=== PATIENT | male | born 1970 | race Caucasian/White ===

== ENCOUNTER 2016-11-02 19:09 | Emergency (ER) | payer MEDICAID ==
--- NOTE | 2016-11-02 19:42 | DX ---
Portable Chest, Single View 19:31 Hours Indication: Cough. Comparison: None Findings: Patchy left basilar airspace consolidation partially obscures left hemidiaphragm and left h eart border. Lungs are otherwise well aerated and clear. Heart size is normal. No effusion. Impression: Left basilar consolidation. Query pneumonia. Recommend follow-up chest radiograph in 4-6 weeks to confirm no underlying pulmonary nodule or mass.
--- NOTE | 2016-11-02 20:18 | EDPHY ---
H & P Stated Complaint: cough, body aches Time Seen by Provider: 11/02/16 19:09 HPI/ROS: CHIEF COMPLAINT: cough, body aches HISTORY OF PRESENT ILLNESS: 46-year-old male presents to the emergency department complaining of a 7 day history of cough, body aches, subjective fevers and chills. Patient reports his cough has worsened in the last couple days, it is productive with yellow sputum. He reports nasal congestion. He does smoke cigarettes daily. Patient reports multiple sick contacts as [facility] is [facility] He denies sore throat, no chest pain. Patient reports he has been taking Tylenol and ibuprofen intermittently which is helpful for his symptoms. REVIEW OF SYSTEMS: A comprehensive 10 point review of systems is otherwise negative aside from elements mentioned in the history of present illness. Source: Patient Exam Limitations: No limitations - Personal History Current Tetanus/Diphtheria Vaccine: No Current Tetanus Diphtheria and Acellular Pertussis (TDAP): No - Medical/Surgical History Hx Asthma: No Hx Chronic Respiratory Disease: No Hx Diabetes: No Hx Cardiac Disease: No Hx Renal Disease: No Hx Cirrhosis: No Hx Alcoholism: No Hx HIV/AIDS: No Hx Splenectomy or Spleen Trauma: No Other PMH: pmh- hypoglyecimic, ptsd, depression, suicide attempt. psh- thumb - Family History Significant Family History: No pertinent family hx - Social History Smoking Status: Light smoker - Physical Exam Exam: General: Alert, nontoxic. ENT: Tympanic membranes clear, external auditory canal, external ear and surrounding soft tissue including over the mastoid unremarkable. Nasopharynx is injected, there is rhinorrhea. Oropharynx with erythema, no edema. There is no exudate. No tonsillar hypertrophy. No asymmetry. The uvula is midline. No elevation of tongue. There is no hoarseness. No drooling, patient has good control of their oral secretions. No trismus. No stridor. Cardiac: Regular rate and rhythm. Respiratory: Lungs clear to auscultation bilaterally. Neurological: no meningismus. Skin: No rashes. Constitutional: Initial Vital Signs Temperature (C) 37 C 11/02/16 19:19 Heart Rate 77 11/02/16 19:19 Respiratory Rate 14 11/02/16 19:19 Blood Pressure 107/65 11/02/16 19:19 O2 Sat (%) 95 11/02/16 19:19 O2 Delivery Mode Room Air Allergies/Adverse Reactions: milk [Milk] Allergy (Unknown, Verified 11/02/16 19:17) Home Medications: Medication Instructions Recorded Herbals/Supplements -Info Only 1 ea PO DAILY 03/18/15 Azithromycin [Zithromax] 250 mg PO DAILY 4 Days 11/02/16 Medical Decision Making - Diagnostics Imaging: Chest x-ray independently reviewed by me- Impression: Left basilar consolidation. Query pneumonia. Recommend follow-up chest radiograph in 4 -6 weeks to confirm no underlying pulmonary nodule or mass. Dictated By: Prakash Sanford MD ED Course/Re-evaluation: 46-year-old nontoxic-appearing male presents with a 7 day history of cough, subjective fevers and chills and body aches. Chest x-ray shows a left lower lobe pneumonia. He is a smoker. He is given 500 mg of p. o. Zithromax in the emergency department, he is discharged with a prescription for 4 more days of 250 mg. He is sent home with an albuterol inhaler to use 2 puffs every 4-6 hours as needed for cough. I have recommended alternating Tylenol with ibuprofen and smoking cessation. He agrees to return for worsening symptoms and agrees to follow up at [facility] for repeat chest x-ray in 4-6 weeks to assure this has resolved. Patient is comfortable this plan, room air oxygen saturations are 97% he is a febrile, heart rate is 70 and he is normotensive. Differential Diagnosis: Diagnosis considered but not limited to community-acquired pneumonia, viral pneumonia, influenza, viral syndrome, URI - Data Points Laboratory Results: 11/02/16 19:15 Influenza Typ A,B (DFA) NEGATIVE FOR FLU (NEGATIVE) Departure - Departure Disposition: Home, Routine, Self-Care Clinical Impression: Community acquired pneumonia Condition: Good Instructions: Community Acquired Pneumonia (ED) Additional Instructions: Take your antibiotics as prescribed, use the albuterol inhaler, 2 puffs every 4- 6 hours as needed for cough, continue taking Tylenol alternating with ibuprofen every 4 hours for fevers and body aches. Follow up at [facility] for a repeat chest x-ray in 4-6 weeks to assure this has resolved. Return to the emergency department for worsening symptoms. Referrals: [facility] [Outside] - As per Instructions Prescriptions: Azithromycin [Zithromax] 250 mg PO DAILY 4 Days
[2016-11-02] MEDS ORDERED: AZITHROMYCIN 250 MG TAB PO ONE (20:25)
[2016-11-02] MEDS ORDERED: ALBUTEROL INH PREPACK MDI TAKEHOME ONE (20:25)
[2016-11-02 20:59] VITALS: BP 100/63; PULSE 73; RESP 16; TEMP 98.1; O2SAT 97
== END 2016-11-02 20:59 | disposition home or self-care (01) ==
LOC: EDUNIT#
DX: J18.9 Pneumonia, unspecified organism (principal); F17.200 Nicotine dependence, unspecified, uncomplicated

== ENCOUNTER 2016-11-07 09:10 | Inpatient (IN) | payer MEDICAID ==
--- NOTE | 2016-11-07 09:23 | EDPHY ---
H & P Time Seen by Provider: 11/07/16 09:20 HPI/ROS: CHIEF COMPLAINT: Cough, shortness of breath, vomiting HISTORY OF PRESENT ILLNESS: 46-year-old homeless male presents to the emergency department by ambulance with persisting cough, shortness of breath and vomiting. The patient was diagnosed with left lower lobe pneumonia on November 02, 2016 and was prescribed Zithromax. He took the Zithromax as prescribed, however he continues to have coughing and now post-tussive vomiting. Describes sharp pain in the left side of his chest. He has pain with deep breathing. He has cramping abdominal pain. He denies back pain. Denies urinary symptoms. Unknown fevers or chills. REVIEW OF SYSTEMS: Constitutional: Unknown fevers, chills Eyes: No double or blurry vision. ENT: No sore throat. Respiratory: Cough, shortness of breath Cardiac: Left-sided chest pain Gastrointestinal: Post-tussive vomiting. No abdominal pain or diarrhea Genitourinary: No dysuria. Musculoskeletal: No neck or back pain. Skin: No rashes. Neurological: No headache. Past Medical/Surgical History: Diagnosed with left lower lobe pneumonia November 02, 2016 Social History: Homeless Smoking Status: Light smoker Physical Exam: General Appearance: Alert, no distress. Temperature 37.8, 95% on room air. Blood pressure 124/82 Eyes: Pupils equal and round. Extraocular motions are all intact. ENT: Mouth: Mucous membranes moist. Respiratory: Actively coughing. Decreased breath sounds in the bases bilaterally. No rhonchi or wheezing noted. Unable to reproduce pain with palpation to the anterior aspect of his chest. Cardiovascular: Regular rate and rhythm. Gastrointestinal: Abdomen is soft and nontender, no masses, no rebound or guarding, bowel sounds normal. Neurological: Alert and oriented x 3, cranial nerves II through XII grossly intact Skin: Warm and dry, no rashes. Musculoskeletal: Nontender to palpate along the cervical, thoracic or lumbar spine. Neck is supple. Extremities: Full range of motion and no peripheral edema. Psychiatric: Patient is oriented X 3, there is no agitation. Constitutional: Initial Vital Signs Temperature (C) 37.3 C 11/07/16 09:10 Heart Rate 96 11/07/16 09:10 Respiratory Rate 20 11/07/16 09:10 Blood Pressure 149/87 H 11/07/16 09:10 O2 Sat (%) 95 11/07/16 09:10 O2 Delivery Mode Room Air Allergies/Adverse Reactions: milk [Milk] Allergy (Unknown, Verified 11/02/16 19:17) Home Medications: Medication Instructions Recorded Herbals/Supplements -Info Only 1 ea PO DAILY 03/18/15 Albuterol [Proventil Inhaler HFA 2 puffs IH Q4 PRN 11/07/16 (*)] Medical Decision Making - Diagnostics EKG Interpretation: EKG reveals normal sinus rhythm with no acute ST T wave abnormalities. This is reviewed by Dr. Marizol Silva. See interpretation in trace master. Imaging: Chest x-ray reveals evidence of worsening infiltrate in the left lower lobe compared with previous study from November 02, 2016. CT pulmonary angiogram reveals no evidence of pulmonary embolism however dense left lower lobe pneumonia and likely right middle lobe pneumonia noted. This was reported by Dr. Hosea Londono. ED Course/Re-evaluation: 46-year-old homeless male presents to the emergency department with persisting cough. Chest x-ray reveals worsening infiltrate left lower lobe. Because he is having pain in his chest with specifically pleuritic chest pain, D-dimer was ordered which was elevated 1.63. CT pulmonary angiogram reveals no evidence of pulmonary embolism, however left lower lobe dense infiltrate with likely right middle lobe pneumonia noted as well. White blood cell count elevated over 13,000. Chemistries were normal. Patient was started on Levaquin 750 mg IV. Blood cultures have been collected. The patient will be admitted to the [facility] given his worsening cough and shortness of breath. I did not repeat influenza swab as his influenza was negative when he was here 1 week ago. Differential Diagnosis: Including but not limited to pneumonia, bronchitis, pulmonary embolism, viral upper respiratory infection, influenza - Data Points Laboratory Results: Laboratory Results 11/07/16 09:24 11/07/16 09:24 11/07/16 09:24 WBC 13.29 H 10^3/uL (3.80-9.50) RBC 4.60 10^6/uL (4.40-6.38) Hgb 14.6 g/dL (13.7-17.5) Hct 40.9 % (40.0-51.0) MCV 88.9 fL (81.5-99.8) MCH 31.7 pg (27.9-34.1) MCHC 35.7 g/dL (32.4-36.7) RDW 12.8 % (11.5-15.2) Plt Count 257 10^3/uL (150-400) MPV 9.8 fL (8.7-11.7) Neut % (Auto) 81.4 H % (39.3-74.2) Lymph % (Auto) 8.0 L % (15.0-45.0) [place] % (Auto) 8.9 % (4.5-13.0) Eos % (Auto) 0.5 L % (0.6-7.6) Baso % (Auto) 0.5 % (0.3-1.7) Nucleat RBC Rel Count 0.0 % (0.0-0.2) Absolute Neuts (auto) 10.83 H 10^3/uL (1.70-6.50) Absolute Lymphs (auto) 1.06 10^3/uL (1.00-3.00) Absolute Monos (auto) 1.18 H 10^3/uL (0.30-0.80) Absolute Eos (auto) 0.07 10^3/uL (0.03-0.40) Absolute Basos (auto) 0.06 10^3/uL (0.02-0.10) Absolute Nucleated RBC 0.00 10^3/uL (0-0.01) Immature Gran % 0.7 % (0.0-1.1) Immature Gran # 0.09 10^3/uL (0.00-0.10) D-Dimer 1.63 H ug/mLFEU (0.00-0.50) Sodium 141 mEq/L (134-144) Potassium 4.3 mEq/L (3.5-5.2) Chloride 104 mEq/L (97-110) Carbon Dioxide 22 mEq/l (22-31) Anion Gap 15 mEq/L (8-16) BUN 12 mg/dL (7-23) Creatinine 0.7 mg/dL (0.7-1.3) Estimated GFR > 60 Glucose 98 mg/dL (70-100) Calcium 9.0 mg/dL (8.5-10.4) Departure - Departure Disposition: [facility] Inpatient Acute Clinical Impression: Pneumonia Qualifiers: Pneumonia type: due to unspecified organism Laterality: bilateral Lung location : unspecified part of lung Qualifier Code: (J18.9) Pneumonia, unspecified organism Condition: Good
--- NOTE | 2016-11-07 09:28 | CPEKG ---
Heart Rate: 89 RR Interval: 674 P-R Interval: 156 QRSD Interval: 82 QT Interval: 340 QTC Interval: 414 P [place]: 73 QRS [place]: -57 T Wave [place]: 67 EKG Severity - ABNORMAL ECG - EKG Impression: SINUS RHYTHM EKG Impression: LEFT ANTERIOR FASCICULAR BLOCK Electronically Signed By: Willis Edgar 08-Nov-2016 10:53:24
[2016-11-07 09:34] LABS: % IMMATURE GRANULYOCYTES 0.7 % (0.0-1.1); ABSOLUTE IMMATURE GRANULOCYTES 0.09 10^3/uL (0.00-0.10); ADD DIFF? NO; ADD MORPH? NO; ADD SCAN? NO; ATYPICAL LYMPHOCYTE FLAG 0 (0-99); FRAGMENT RBC FLAG 0 (0-99); HEMATOCRIT 40.9 % (40.0-51.0); HEMOGLOBIN 14.6 g/dL (13.7-17.5); LEFT SHIFT FLG 0 (0-99); LIPEMIA HEMOLYSIS FLAG 90 (0-99); MEAN CELL HEMOGLOBIN 31.7 pg (27.9-34.1); MEAN CELL HEMOGLOBIN CONCENTR. 35.7 g/dL (32.4-36.7); MEAN CELL VOLUME 88.9 fL (81.5-99.8); MEAN PLATELET VOLUME 9.8 fL (8.7-11.7); PLATELET CLUMPS FLAG 0 (0-99); PLATELET COUNT 257 10^3/uL (150-400); RED CELL DISTRIBUTION WIDTH 12.8 % (11.5-15.2)
[2016-11-07 09:45] LABS: ANION GAP 15 mEq/L (8-16); CARBON DIOXIDE 22 mEq/l (22-31); CHLORIDE 104 mEq/L (97-110); CREATININE 0.7 mg/dL (0.7-1.3); GLOMERULAR FILTRATION RATE > 60; GLUCOSE 98 mg/dL (70-100); POTASSIUM 4.3 mEq/L (3.5-5.2); SODIUM 141 mEq/L (134-144)
[2016-11-07] MEDS ORDERED: IOPAMIDOL (ISOVUE 370) 100 ML BTL IV ONE (10:06)
--- NOTE | 2016-11-07 10:57 | DX ---
Chest, AP Upright and Lateral Views November 07, 2016 at 9:21 a.m. Clinical History: 46-year-old male with dyspnea and coughing, seen for pneumonia last week and withou t improvement. Comparison Study: Chest, dated November 02, 2016. Findings: Telemetry monitoring lead lines are noted. The cardiac and mediastinal silhouettes are norm al in size. There is mild central perihilar bronchial wall thickening. There is a persistent and slig htly increased infiltrate at the left lung base. The right hemithorax is relatively clear. There is n o peripheral interstitial edema or pneumothorax. There is a mild pectus carinatum configuration. The thoracic vertebral body heights are maintained. The trachea is midline. Impression: Perihilar bronchial wall thickening with a slight interval increase in the left basilar i nfiltrate, compared November 02, 2016.
--- NOTE | 2016-11-07 11:16 | CT ---
Contrast Enhanced CT Scan of the Chest CT (CT Angiography) Clinical History: 46-year-old male with left-sided chest pain, a cough, shortness of breath, and naus ea and vomiting, who has been treated for pneumonia for the last 5 days. He has a tobacco use history . His D-dimer is elevated at 1.63. Rule out PE. Technique: Following the uncomplicated intravenous administration of 90 mL of Isovue-370, a multidete ctor helical CT scan was obtained from the base of the neck inferiorly to the upper abdomen during pe ak arterial phase, with images reformatted in soft tissue, lung, liver, and bone windows, and are ref ormatted at 1.50 mm and 4/3 mm increments. Multiplanar reconstructions were reviewed on the workstati on. The DFOV is 35.4 cm. Dose reduction techniques were utilized. Comparison Studies: Chest radiography from this morning, and dated November 02, 2016. Findings: CT Angiography: The main pulmonary artery, the main right and left pulmonary arteries, and the first and second order pulmonary segments are contrast-opacified, with no filling defect to suggest acute o r chronic thromboemboli. There is no interventricular septum deviation, nor is there any reflux of co ntrast into the intrahepatic IVC. The ascending and descending thoracic aorta, as well as the visuali zed upper abdominal aorta are normal in caliber, with no aneurysm or dissection. There is a normal an atomic arrangement of the great vessels off the aortic arch. There is no coronary artery atherosclero tic calcification. The pericardium is normal. Contrast-Enhanced CT Scan of the Chest: There is a dense infiltrate involving posterior left lower lo be, consistent with a bronchopneumonia. There is also some mild subsegmental atelectasis or infiltrat e in the posterior medial and inferolateral right middle lobe and in the anteromedial right lower lob e. There is no pleural effusion. A portion of the right costophrenic angle has been excluded. There i s no pleural effusion, pneumothorax, or pneumomediastinum. There is no pathologically-enlarged adenop athy. The visualized portions of the thyroid gland and the upper abdomen are normal. The osseous stru ctures are age-appropriate. Impression: 1. There is no CT evidence of pulmonary artery thromboemboli. 2. Dense bronchopneumonia involving the left lower lobe with some minimal subsegmental atelectasis ve rsus early infiltrates in the posterior medial and inferolateral right middle lobe, and in the leslie medial right lower lobe. Results were conveyed to Ki Noonan NP, who will convey the information to Tangela Muhammad PA-C. A test result has been communicated to a licensed care provider and documented in the [facility] Result system on 11/07/2016 11:12, Message ID [id number].
[2016-11-07] MEDS ORDERED: OXYCODONE/APAP 5/325 TAB PO PRN (13:16)
[2016-11-07] MEDS ORDERED: ONDANSETRON 4 MG/2 ML VIAL IVP PRN (13:16)
[2016-11-07] MEDS ORDERED: IBUPROFEN 200 MG TAB PO PRN (13:16)
[2016-11-07] MEDS ORDERED: ONDANSETRON DISINTEGRATING 4 MG TAB PO PRN (13:16)
[2016-11-07] MEDS ORDERED: ACETAMINOPHEN 325 MG TAB PO PRN (13:16)
[2016-11-07] MEDS ORDERED: ALBUTEROL 60 PUFFS/8 GM MDI IH PRN (15:19)
[2016-11-07] MEDS ORDERED: IPRATROPIUM/ALBUTEROL 3 ML DEYVIAL IH PRN (15:34)
--- NOTE | 2016-11-07 16:28 | GHP ---
[f rep st] HISTORY AND PHYSICAL DATE OF ADMISSION: 11/07/2016 CHIEF COMPLAINT: Cough, shortness of breath, and posttussive coughing. HPI: The patient is a 46-year-old male with a past medical history of depression and anxiety and melo creatitis in 2014, who is being admitted with pneumonia. He was initially seen on 11/02/2016 for cou gh and was diagnosed with a left lower lobe pneumonia. He reports minimal relief with the azithromyc in that was prescribed in the ED. He represented today with worsening cough, shortness of breath, an d posttussive vomiting. He describes left sharp chest pain that will be induced by coughing. He als o notes some abdominal cramping again, related to his coughing. He denies any PND or orthopnea. He does have insomnia that has been a chronic issue over the years. He reports feeling chills and warm, but has not had any objective afebrile readings. He is active. Because he is homeless, he will wal [place] for several miles daily without issues. REVIEW OF SYSTEMS: As per HPI. PAST MEDICAL HISTORY: 1. History of depression and anxiety. 2. History of PTSD. 3. History of pancreatitis, which he feels is related to the antipsychotic meds that he was given. FAMILY HISTORY: Mother had COPD and has . Father of alcoholism. SOCIAL HISTORY: Patient is homeless. He reports smoking 1 cigarette daily. Denies any alcohol. He has not been smoking any marijuana. He has a sister who lives in [place], with whom he is close. He has contacted her and let her know of his hospitalization. She would be his emergency contact. PHYSICAL EXAM: VITAL SIGNS: BP of 117/73, heart rate 97, respirations 20, O2 saturation 95% on room air, temp of 99.9 degrees. GENERAL: He is a pleasant male, in no apparent distress. EYES: PERRL. HEART: Regular rate and rhythm. LUNGS: Diminished with bronchial breath sounds. No rales auscul tated. ABDOMEN: Soft, nontender. : Bladder nontender. No [place] present. SKIN: Warm and dry. PSYCH: Normal mood and affect. NEURO: No gross focal deficits detected. LABS: BMP with sodium 141, potassium 4.3, chloride 104, CO2 was 22, BUN 12, creatinine 0.7, glucose 98. CBC with WBC 13.29, hemoglobin 14.6, hematocrit 48.9, platelet count 257. D-dimer elevated at 1 .63. IMAGING: CTA of chest shows extensive bronchopneumonia involving the left lower lobe with some minim al subsegmental atelectasis versus early infiltrates in the posterior middle and inferior right middl e lobes, and the anteromedial medial lower lobe. A 12-lead ECG, personally interpreted, demonstrates sinus rhythm within a LAFB. IMPRESSION AND PLAN: The patient is a 46-year-old male, who presents with a community-acquired pneum onia. 1. Left lower lobe and right middle lobe pneumonia: He will be treated for community-acquired pneum onia with Levaquin to complete at least a 5-day course. He will be started on IV and should likely t ransition to p.o. prior to discharge. Will add Mucinex and breathing treatments with inhaled nebuliz ed treatments. 2. History of pancreatitis: This was medication-induced. He denies any alcohol intake. 3. Depression and anxiety: He reports he is much improved from that. 4. Code status: Patient wishes to be a full code. 5. Length of stay: Patient is being admitted to ob status with anticipated discharge within 2-midni ghts. Should his clinical status worsen, he will be transitioned to inpatient status. /[id number]/MODL
[2016-11-07] MEDS: guaiFENesin 600 MG TAB.ER PO SCH (20:05)
[2016-11-07] MEDS: LORazepam 0.5 MG TAB PO PRN (20:14)
[2016-11-08 05:15] LABS: % IMMATURE GRANULYOCYTES 0.7 % (0.0-1.1); ABSOLUTE IMMATURE GRANULOCYTES 0.06 10^3/uL (0.00-0.10); ADD DIFF? NO; ADD MORPH? NO; ADD SCAN? NO; ATYPICAL LYMPHOCYTE FLAG 30 (0-99); FRAGMENT RBC FLAG 0 (0-99); HEMATOCRIT 39.7 % (40.0-51.0); HEMOGLOBIN 13.8 g/dL (13.7-17.5); LEFT SHIFT FLG 0 (0-99); LIPEMIA HEMOLYSIS FLAG 90 (0-99); MEAN CELL HEMOGLOBIN 30.9 pg (27.9-34.1); MEAN CELL HEMOGLOBIN CONCENTR. 34.8 g/dL (32.4-36.7); MEAN PLATELET VOLUME 9.9 fL (8.7-11.7); PLATELET CLUMPS FLAG 0 (0-99); PLATELET COUNT 244 10^3/uL (150-400); RED BLOOD CELL COUNT 4.46 10^6/uL (4.40-6.38); RED CELL DISTRIBUTION WIDTH 12.7 % (11.5-15.2)
[2016-11-08 05:40] LABS: ANION GAP 11 mEq/L (8-16); CALCIUM 8.6 mg/dL (8.5-10.4); CARBON DIOXIDE 21 mEq/l (22-31); CHLORIDE 108 mEq/L (97-110); CREATININE 0.7 mg/dL (0.7-1.3); GLOMERULAR FILTRATION RATE > 60; GLUCOSE 88 mg/dL (70-100); POTASSIUM 4.3 mEq/L (3.5-5.2); SODIUM 140 mEq/L (134-144)
[2016-11-08] MEDS: guaiFENesin 600 MG TAB.ER PO SCH ×2 (08:47→20:46)
[2016-11-08] MEDS ORDERED: BENZONATATE 100 MG CAP PO PRN (09:15)
--- NOTE | 2016-11-08 09:18 | HOSPPROG ---
Hospitalist Progress Note Assessment/Plan: 46-year-old homeless man with a history of tobacco use is admitted with pneumonia. # probable community-acquired pneumonia in homeless man with a history of tobacco use, possible mild COPD exacerbation. * Continue Levaquin * Add duo nebs and Singulair for COPD * Tobacco cessation counseling # homelessness: Need to talk with case management. The set up safe environment for him to discharge to to prevent readmission. Subjective: Coughing quite a lot, no chest pain no diarrhea. Concerned about going out on the street today needs another night Objective: Vital Signs Temp Pulse Resp BP Pulse Ox 36.3 C 82 16 111/65 94 11/08/16 07:42 11/08/16 07:42 11/08/16 07:42 11/08/16 07:42 11/08/16 07:42 Laboratory Results 11/08/16 04:35 11/08/16 04:35 11/07/16 11/08/16 11/09/16 05:59 05:59 05:59 Intake Total 1870 Output Total 550 Balance 1320 - Physical Exam Constitutional: uncomfortable, unkempt Eyes: PERRL Ears, Nose, Mouth, Throat: moist mucous membranes, hearing normal, ears appear normal Cardiovascular: regular rate and rhythym, no murmur, rub, or gallop Respiratory: no respiratory distress, reduced air movement (Left base), expiratory wheeze, bronchial breath sounds Gastrointestinal: normoactive bowel sounds, soft, non-tender abdomen, no palpable masses Genitourinary: no bladder fullness Skin: warm, normal color Musculoskeletal: no joint effusions Neurologic: AAOx3 Psychiatric: interacting appropriately, not anxious ICD10 Worksheet Patient Problems: Problems Problem Status Diagnosed Pneumonia Acute Pancreatitis Acute
[2016-11-08] MEDS: IPRATROPIUM/ALBUTEROL 3 ML DEYVIAL IH SCH ×4 (12:10→22:51)
[2016-11-08] MEDS ORDERED: MONTELUKAST SODIUM 10 MG TAB PO SCH (18:00)
[2016-11-08] MEDS ORDERED: FLU VACC QS 2016-17(3-64YR)/PF 0.5 ML SYR (FLUARIX QUAD) IM ONE (20:45)
[2016-11-08] MEDS ORDERED: PNEUMOCOCCAL 0.5ML VACCINE VIAL IM ONE (20:45)
[2016-11-08] MEDS: LORazepam 0.5 MG TAB PO PRN (21:27)
[2016-11-09 03:40] VITALS: TEMP 97.9
[2016-11-09] MEDS: IPRATROPIUM/ALBUTEROL 3 ML DEYVIAL IH SCH ×2 (05:14→11:51)
[2016-11-09 05:17] VITALS: O2SAT 94
[2016-11-09 08:26] VITALS: BP 116/63
[2016-11-09] MEDS: guaiFENesin 600 MG TAB.ER PO SCH (08:49)
[2016-11-09 11:56] VITALS: PULSE 96; RESP 20
--- NOTE | 2016-11-09 12:31 | GDS ---
[f rep st] DISCHARGE SUMMARY DIAGNOSES: 1. Community-acquired pneumonia. 2. Homelessness. 3. Reactive component, secondary to pneumonia. PROCEDURES DONE: CT angiogram of the chest, negative for PE, dense bronchopneumonia involving the le ft lower lobe. HOSPITAL COURSE: The patient is a 46-year-old homeless man, who came in with a cough. He does have a history of tobacco use. He was initially seen a week prior to admission and diagnosed with a left lower lobe pneumonia, placed on Zithromax, and sent home. He came back with worsening shortness of b reath and coughing, as well as posttussive vomiting. He was started on Levaquin, given Singulair, al buterol as needed for cough which helped his symptoms quite a bit. On the day of discharge, he is no longer having posttussive vomiting and is feeling much better. CONDITION ON DISCHARGE: Good. Vital signs are stable. He has been afebrile. O2 sats are over 94-9 5% on room air. DISCHARGE MEDICATIONS: He will be given albuterol inhaler, Levaquin to complete 7 days, Singulair 10 mg daily until symptoms have completely resolved. Total time spent with patient on day of discharge and coordination of care is 35 minutes. FOLLOWUP INSTRUCTIONS: He should follow up with [facility] in the next 1-2 weeks. Case Managem ent will see the patient prior to discharge to get him in a correction. /[id number]/MODL
== END 2016-11-09 13:48 | disposition home or self-care (01) | DRG 195 ==
LOC: EDUNIT# → F3N 12:55 → OBSVTOIN 11-08 14:14 → F3E 11-08 15:26
PROVIDERS: ADMIT Internal Medicine; ATTEND Internal Medicine
DX: J18.8 Other pneumonia, unspecified organism (principal); Z59.0 Homelessness; Z72.0 Tobacco use; G47.00 Insomnia, unspecified; F41.8 Other specified anxiety disorders; F43.10 Post-traumatic stress disorder, unspecified; Z23 Encounter for immunization
CPT/HCPCS: 96365; G0008; G0009; G0378; J1956; Q9967

== ENCOUNTER 2017-08-29 16:38 | Emergency (ER) | payer MEDICAID ==
[2017-08-29] MEDS ORDERED: IBUPROFEN 600 MG TAB PO ONE (16:47)
[2017-08-29] MEDS ORDERED: OXYCODONE/APAP 5/325 TAB PO ONE (16:47)
[2017-08-29 16:49] VITALS: BP 128/91; PULSE 82; RESP 16; TEMP 98.2; O2SAT 97
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
== END 2017-08-29 17:22 | disposition home or self-care (01) ==
LOC: EDUNIT#
DX: S02.2XXA Fracture of nasal bones, initial encounter for closed fracture (principal); S09.90XA Unspecified injury of head, initial encounter; F17.200 Nicotine dependence, unspecified, uncomplicated; Y04.2XXA Assault by strike against or bumped into by another person, initial encounter

== ENCOUNTER 2017-10-10 23:49 | Emergency (ER) | payer MEDICAID ==
--- NOTE | 2017-10-11 00:05 | CPEKG ---
Heart Rate: 73 RR Interval: 822 P-R Interval: 164 QRSD Interval: 84 QT Interval: 396 QTC Interval: 437 P Christine: 58 QRS Christine: -40 T Wave Christine: 70 EKG Severity - ABNORMAL ECG - EKG Impression: SINUS RHYTHM EKG Impression: LEFT AXIS DEVIATION EKG Impression: ST ELEVATION SUGGESTS PERICARDITIS Electronically Signed By: Florian Song 11-Oct-2017 04:41:15
[2017-10-11 00:15] LABS: PLATELET COUNT 288 10^3/uL (150-400)
--- NOTE | 2017-10-11 00:23 | EDPHY ---
H & P Stated Complaint: chest discomfort Time Seen by Provider: 10/10/17 23:59 HPI/ROS: Chief Complaint: Anxiety, vomiting HPI: 47-year-old homeless male who states he woke this evening feeling like he was have any anxiety attack. Patient states that he felt very sweaty. His heart was beating fast. He felt nauseated. He went to the bathroom and vomited. He then felt he was going to have diarrhea but felt better. He went to the front just a tether he was feeling unwell and felt he might vomit again. Paramedics were called. He states he has had similar episodes in the past. No chest pain or shortness of breath. EMS was concerned because he appeared to have some T-wave changes on his ECG. Patient however did not have any chest pains or cardiac alert was not initiated. Patient smokes 1 pack a week. Does not have any family history of coronary artery disease. No recent illness. No cough. No abdominal pain. No headache. Currently states he is feeling much better. Does have a history of anxiety and PTSD but does not take any medications for this. ROS: 10 point Review of Systems is negative except as noted in the HPI. PMH: PTSD, anxiety Social History: Positive smoking, no alcohol, occasional marijuana Family History: non-contributory Physical Exam: Gen: Awake, Alert, No Distress HEENT: Nose: no rhinorrhea Eyes: PERRLA, EOMI Mouth: Moist mucosa Neck: Supple, no JVD Chest: nontender, lungs clear to auscultation Heart: S1, S2 normal, no murmur Abd: Soft, non-tender, no guarding Back: no CVA tenderness, no midline tenderness Ext: no edema, non-tender Skin: no rash Neuro: CN II-XII intact, Sensation grossly intact, Strength 5/5 in bilateral upper and lower extremities - Personal History Current Tetanus/Diphtheria Vaccine: Yes Current Tetanus Diphtheria and Acellular Pertussis (TDAP): Yes Tetanus Vaccine Date: 2015 - Medical/Surgical History Hx Asthma: No Hx Chronic Respiratory Disease: No Hx Diabetes: No Hx Cardiac Disease: No Hx Renal Disease: No Hx Cirrhosis: No Hx Alcoholism: No Hx HIV/AIDS: No Hx Splenectomy or Spleen Trauma: No Other PMH: pmh- hypoglyecimic, ptsd, depression, suicide attempt, anxiety. psh - thumb - Social History Smoking Status: Light smoker Constitutional: Initial Vital Signs Temperature (C) 36.5 C 10/10/17 23:55 Heart Rate 73 10/10/17 23:55 Respiratory Rate 20 10/10/17 23:55 Blood Pressure 97/84 H 10/10/17 23:55 O2 Sat (%) 99 10/10/17 23:55 O2 Delivery Mode Room Air Allergies/Adverse Reactions: milk [Milk] Allergy (Unknown, Verified 11/02/16 19:17) Medical Decision Making - Diagnostics EKG Interpretation: ECG time 11:57 p.m., sinus rhythm with a rate of 73, there is a left axis deviation, he has chief complaint elevation in V3 through 5. There is no reciprocal change. This is unchanged from ECG of 07 November 2016. ED Course/Re-evaluation: Patient awoke with nausea vomiting. Symptoms have since resolved. Is very anxious. ECG shows a left anterior fascicular block which is unchanged from prior. He did not have any chest pain. His labs are all normal. He is feeling fine at this point. Will discharge with reassurance instructions to follow with primary care physician. No findings suggestive of acute coronary syndrome or respiratory illness. - Data Points Laboratory Results: Laboratory Results 10/11/17 00:00 10/11/17 00:00 10/11/17 10/11/17 00:00 00:00 WBC 10.88 10^3/uL H 10^3/uL (3.80-9.50) RBC 5.28 10^6/uL 10^6/uL (4.40-6.38) Hgb 17.3 g/dL g/dL (13.7-17.5) Hct 48.4 % % (40.0-51.0) MCV 91.7 fL fL (81.5-99.8) MCH 32.8 pg pg (27.9-34.1) MCHC 35.7 g/dL g/dL (32.4-36.7) RDW 13.1 % % (11.5-15.2) Plt Count 288 10^3/uL 10^3/uL (150-400) MPV 10.1 fL fL (8.7-11.7) Neut % (Auto) 34.2 % L % (39.3-74.2) Lymph % (Auto) 51.8 % H % (15.0-45.0) [place] % (Auto) 8.5 % % (4.5-13.0) Eos % (Auto) 3.7 % % (0.6-7.6) Baso % (Auto) 1.2 % % (0.3-1.7) Nucleat RBC Rel Count 0.0 % % (0.0-0.2) Absolute Neuts (auto) 3.72 10^3/uL 10^3/uL (1.70-6.50) Absolute Lymphs (auto) 5.64 10^3/uL H 10^3/uL (1.00-3.00) Absolute Monos (auto) 0.93 10^3/uL H 10^3/uL (0.30-0.80) Absolute Eos (auto) 0.40 10^3/uL 10^3/uL (0.03-0.40) Absolute Basos (auto) 0.13 10^3/uL H 10^3/uL (0.02-0.10) Absolute Nucleated RBC 0.00 10^3/uL 10^3/uL (0-0.01) Immature Gran % 0.6 % % (0.0-1.1) Immature Gran # 0.06 10^3/uL 10^3/uL (0.00-0.10) Sodium 146 mEq/L H mEq/L (134-144) Potassium 4.5 mEq/L mEq/L (3.5-5.2) Chloride 103 mEq/L mEq/L (97-110) Carbon Dioxide 25 mEq/l mEq/l (22-31) Anion Gap 18 mEq/L H mEq/L (8-16) BUN 15 mg/dL mg/dL (7-23) Creatinine 0.9 mg/dL mg/dL (0.7-1.3) Estimated GFR > 60 Glucose 80 mg/dL mg/dL (70-100) Calcium 10.8 mg/dL H mg/dL (8.5-10.4) Phosphorus 3.0 mg/dL mg/dL (2.5-4.5) Troponin I < 0.012 ng/mL ng/mL (0.000-0.034) Departure - Departure Disposition: Home, Routine, Self-Care Clinical Impression: Vomiting Condition: Good Instructions: Acute Nausea and Vomiting (ED) Additional Instructions: Follow up with the [facility] in 2-3 days for further evaluation. Return to the emergency department for chest pain, shortness of breath, uncontrolled nausea vomiting, fainting, fevers, chills, or any other concerns. Referrals: [facility],. [Clinic] - As per Instructions
[2017-10-11 01:11] VITALS: BP 103/59; PULSE 60; RESP 14; TEMP 97.9; O2SAT 94
== END 2017-10-11 01:13 | disposition home or self-care (01) ==
LOC: EDUNIT#
DX: R11.10 Vomiting, unspecified (principal); F17.200 Nicotine dependence, unspecified, uncomplicated

== ENCOUNTER 2017-11-01 00:05 | Emergency (ER) | payer MEDICAID ==
[2017-11-01] MEDS ORDERED: NS 1,000 ML IV ONE ×2 (00:09→00:51)
--- NOTE | 2017-11-01 00:11 | EDPHY ---
H & P HPI/ROS: HPI CHIEF COMPLAINT: Nausea, vomiting, diarrhea HISTORY OF PRESENT ILLNESS: This patient is a 47-year-old male, presents emergency room with nausea vomiting and diarrhea. He states that he was [facility] and then woke up suddenly with a panic/anxiety attack. He states he was hyperventilating felt numbness and tingling all over his body then developed abdominal cramping. He suddenly developed nausea vomiting and diarrhea with it. Denies any fever. Denies chest pain or shortness of breath. 911 was called from [facility] arrived and gave him 6.25 mg of Phenergan. He has since felt much better. He has not had any further nausea vomiting. He denies any blood in his stool or hematemesis. Denies recent illness. Past Medical History: Anxiety, PTSD, depression, panic attacks Past Surgical History: No surgical history Social History: Homeless, smokes tobacco daily. Denies illicit drugs or alcohol. Family History: Noncontributory ROS REVIEW OF SYSTEMS: A comprehensive 10 point review of systems is otherwise negative aside from elements mentioned in the history of present illness. Exam Constitutional appears well nontoxic no acute distress, triage nursing summary reviewed, vital signs reviewed, awake/alert. Eyes normal conjunctivae and sclera, EOMI, PERRLA. HENT normal inspection, atraumatic, moist mucus membranes, no epistaxis, neck supple/ no meningismus, no raccoon eyes. Respiratory clear to auscultation bilaterally, normal breath sounds, no respiratory distress, no wheezing. Cardiovascular rate normal, regular rhythm, no murmur, no edema, distal pulses normal. Gastrointestinal soft, non-tender, no rebound, no guarding, normal bowel sounds, no distension, no pulsatile mass. Genitourinary no CVA tenderness. Musculoskeletal no midline vertebral tenderness, full range of motion, no calf swelling, no tenderness of extremities, no meningismus, good pulses, neurovascularly intact. Skin pink, warm, & dry, no rash, skin atraumatic. Neurologic awake, alert and oriented x 3, AAOx3, moves all 4 extremities equally, motor intact, sensory intact, CN II-XII intact, normal cerebellar, normal vision, normal speech. Psychiatric normal mood/affect. Heme/Lymph/Immune no lymphadenopathy. Differential Diagnosis: Includes but is not limited to in a particular order acute anxiety attack, panic attack, dehydration, electrolyte disturbance, acute viral syndrome, viral diarrheal illness Medical Decision Making: Plan for this patient IV establishment, 1 L normal saline fluid bolus, check basic blood work and re-evaluate Re-evaluation: 0130: Patient resting comfortably no acute distress. No abdominal pain. Re- examination of the abdomen is soft nontender. He has not any vomiting or diarrhea here. His abdomen is soft. He would like to be discharged. His blood work is reviewed and shows that he is dehydrated. He has received 2 L of normal saline here. Feeling much better after Phenergan given by EMS. Most likely etiology nausea vomiting and diarrhea this setting went anxiety/ panic attack is viral illness. Recommend bland diet over the next 24-48 hours. Return precautions discussed with the patient. Source: Patient, EMS - Personal History Tetanus Vaccine Date: 2015 - Medical/Surgical History Hx Asthma: No Hx Chronic Respiratory Disease: No Hx Diabetes: No Hx Cardiac Disease: No Hx Renal Disease: No Hx Cirrhosis: No Hx Alcoholism: No Hx HIV/AIDS: No Hx Splenectomy or Spleen Trauma: No Other PMH: pmh- hypoglyecimic, ptsd, depression, suicide attempt, anxiety. psh - thumb - Social History Smoking Status: Light smoker Constitutional: Initial Vital Signs Temperature (C) 36.4 C 11/01/17 00:08 Heart Rate 65 11/01/17 00:08 Respiratory Rate 17 11/01/17 00:08 Blood Pressure 108/73 11/01/17 00:08 O2 Sat (%) 98 11/01/17 00:08 O2 Delivery Mode Room Air Allergies/Adverse Reactions: milk [Milk] Allergy (Unknown, Verified 11/02/16 19:17) Home Medications: Medication Instructions Recorded Gabapentin 11/01/17 Zyprexa 11/01/17 Medical Decision Making - Data Points Laboratory Results: Laboratory Results 11/01/17 00:10 11/01/17 00:10 11/01/17 11/01/17 00:10 00:10 WBC 13.92 10^3/uL H 10^3/uL (3.80-9.50) RBC 5.58 10^6/uL 10^6/uL (4.40-6.38) Hgb 18.2 g/dL H g/dL (13.7-17.5) Hct 51.7 % H % (40.0-51.0) MCV 92.7 fL fL (81.5-99.8) MCH 32.6 pg pg (27.9-34.1) MCHC 35.2 g/dL g/dL (32.4-36.7) RDW 13.1 % % (11.5-15.2) Plt Count 245 10^3/uL 10^3/uL (150-400) MPV 10.3 fL fL (8.7-11.7) Neut % (Auto) 44.9 % % (39.3-74.2) Lymph % (Auto) 37.9 % % (15.0-45.0) [place] % (Auto) 8.1 % % (4.5-13.0) Eos % (Auto) 7.8 % H % (0.6-7.6) Baso % (Auto) 0.9 % % (0.3-1.7) Nucleat RBC Rel Count 0.0 % % (0.0-0.2) Absolute Neuts (auto) 6.27 10^3/uL 10^3/uL (1.70-6.50) Absolute Lymphs (auto) 5.27 10^3/uL H 10^3/uL (1.00-3.00) Absolute Monos (auto) 1.13 10^3/uL H 10^3/uL (0.30-0.80) Absolute Eos (auto) 1.08 10^3/uL H 10^3/uL (0.03-0.40) Absolute Basos (auto) 0.12 10^3/uL H 10^3/uL (0.02-0.10) Absolute Nucleated RBC 0.00 10^3/uL 10^3/uL (0-0.01) Immature Gran % 0.4 % % (0.0-1.1) Immature Gran # 0.05 10^3/uL 10^3/uL (0.00-0.10) Sodium 150 mEq/L H mEq/L (135-145) Potassium 4.6 mEq/L mEq/L (3.5-5.2) Chloride 105 mEq/L mEq/L (97-110) Carbon Dioxide 25 mEq/l mEq/l (22-31) Anion Gap 20 mEq/L H mEq/L (8-16) BUN 17 mg/dL mg/dL (7-23) Creatinine 1.0 mg/dL mg/dL (0.7-1.3) Estimated GFR > 60 Glucose 59 mg/dL L mg/dL (70-100) Calcium 10.2 mg/dL mg/dL (8.5-10.4) Total Bilirubin 0.4 mg/dL mg/dL (0.1-1.4) Conjugated Bilirubin 0.3 mg/dL mg/dL (0.0-0.5) Unconjugated Bilirubin 0.1 mg/dL mg/dL (0.0-1.1) AST 27 IU/L IU/L (17-59) ALT 33 IU/L IU/L (21-72) Alkaline Phosphatase 77 IU/L IU/L (38-126) Total Protein 8.7 g/dL H g/dL (6.3-8.2) Albumin 5.1 g/dL H g/dL (3.5-5.0) Lipase 121 IU/L IU/L (23-300) Medications Given: Discontinued Medications Sodium Chloride (Ns) 1,000 mls @ 0 mls/hr IV EDNOW ONE; Wide Open PRN Reason: Protocol Stop: 11/01/17 00:10 Last Admin: 11/01/17 00:11 Dose: 1,000 mls Sodium Chloride (Ns) 1,000 mls @ 0 mls/hr IV ONCE ONE PRN Reason: Wide Open Stop: 11/01/17 00:52 Last Admin: 11/01/17 00:53 Dose: 1,000 mls Departure - Departure Disposition: Home, Routine, Self-Care Clinical Impression: Panic attack Vomiting Qualifiers: Vomiting type: unspecified Vomiting Intractability: non-intractable Nausea presence: with nausea Qualified Code(s): R11.2 - Nausea with vomiting, unspecified Diarrhea Qualifiers: Diarrhea type: unspecified type Qualified Code(s): R19.7 - Diarrhea, unspecified Condition: Good Instructions: Acute Nausea and Vomiting (ED), Panic Disorder (ED) Referrals: Patient,NotPresent [Unknown] - As per Instructions
[2017-11-01 00:12] VITALS: O2SAT 98
[2017-11-01 00:39] LABS: PLATELET COUNT 245 10^3/uL (150-400)
[2017-11-01 01:34] VITALS: BP 101/66; PULSE 78; RESP 16; TEMP 97.7
== END 2017-11-01 01:47 | disposition home or self-care (01) ==
LOC: EDBD → EDUNIT#
DX: R11.2 Nausea with vomiting, unspecified (principal); R19.7 Diarrhea, unspecified; F41.0 Panic disorder [episodic paroxysmal anxiety]; E86.9 Volume depletion, unspecified; F17.200 Nicotine dependence, unspecified, uncomplicated